=== PATIENT | female | born 1995 | race Caucasian/White ===

== ENCOUNTER 2019-02-19 03:40 | Emergency (ER) | payer OTHER ==
[~2019-02-19] VITALS: Ht 157.5 cm; Wt 59.0 kg
[2019-02-19 03:40] VITALS: BP 123/67
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
[2019-02-19 04:05] VITALS: BP 123/67
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
== END 2019-02-19 04:05 ==
LOC: MED 03:40
DX: M25.572 Pain in left ankle and joints of left foot (principal); M25.571 Pain in right ankle and joints of right foot; F10.129 Alcohol abuse with intoxication, unspecified
CPT/HCPCS: 99283